=== PATIENT | male | born 1990 | race Caucasian/White ===

== ENCOUNTER 2016-06-07 22:59 | Emergency (ER) | payer OTHER ==
[~2016-06-07] VITALS: Ht 182.9 cm; Wt 122.5 kg
[~2016-06-07 22:59] MED LIST: ARISTOCORT OINT15 GM TOP; AUGMENTIN 875 M1 TAB PO; CIPRO 500MG TA500 MG PO; KEFLEX500 MG PO; MOTRIN 600 MG600 MG PO; MOTRIN600 MG PO; PERCOCET 325 MG1 TA2 PO
[2016-06-07 23:37] VITALS: BP 129/89
[2016-06-07 23:54] LABS: ABSOLUTE BASOPHIL COUNT 0 /CUMM (0.0-0.2); ABSOLUTE EOSINOPHIL COUNT 0.1 /CUMM (0.0-0.7); ABSOLUTE MONOCYTE COUNT 0.3 /CUMM (0.10-0.60); BASOPHIL % 0.3 % (0.0-2.0); HEMATOCRIT 46.6 % (42-52); MEAN CORPUSCULAR HGB 27.6 PG (27.0-31.0); MEAN CORPUSCULAR HGB CONC 33.8 G/DL (33.0-37.0); MEAN CORPUSCULAR VOLUME 81.8 FL (80.0-94.0); MEAN PLATELET VOLUME 7.6 FL (7.4-10.4); RBC DISTRIBUTION WIDTH 13.3 % (11.5-14.5); WHITE BLOOD CELL COUNT 12.5 /CUMM (4.8-10.8)
[2016-06-08 00:16] LABS: PLATELET COUNT 268 /CUMM (130-400)
--- NOTE | 2016-06-08 00:16 | ED GI/GU/ABDOMINAL COMPLAINT ---
History of Present Illness General Chief Complaint: Nausea, Vomiting, Diarrhea Stated Complaint: "KAVITA BEEN THROWING UP 2 DAYS" Source: patient Exam Limitations: no limitations Allergies Coded Allergies: Penicillins (UNKNOWN, WAS TOLD HE HAD A KID 06/07/16) Uncoded Allergies: PET HAIR/DANDER (TRIGGERS ASTHMA 03/04/15) Reconcile Medications Cephalexin (Keflex) 500 MG CAP 1 TAB PO TID INFECTION Ciprofloxacin (Cipro) 500 MG TAB 1 TAB PO BID HEMATOSPERMIA Ondansetron (Zofran Odt) 4 MG TAB.RAPDIS 1 TAB SL TID PRN nausea Triamcinolone Acetonide (Aristocort Oint. 0.5% 15GM) 15 GM ONT 1 TING TOP BID CRACKED SKIN TO HANDS apply to affected area(s) Triage Note: 26yo MALE TO TRIAGE W/CO VOMITING X 2 D. DENIES ANY DIARRHEA. Triage Nurses Notes Reviewed? yes HPI: This patient is a 26-year-old male who presented to the emergency department today for evaluation of vomiting. The patient reported that the vomiting began yesterday. He reported that he vomits every time he tries to eat or drink anything. He reported associated nausea and some intermittent, 4 out of 10 abdominal cramping which is nonradiating and associated with vomiting. The patient reported that he has not had a bowel movement in approximately 2 days. He reported that this is normal for him. The patient denied any fevers, chills, chest pain, difficulty breathing. He did report some back pain as well as urinary burning once with urination today he denied any urinary urgency, frequency, or blood in the urine. (VERONICA LEON PA-C) Vital Signs & Intake/Output Vital Signs & Intake/Output ED Intake and Output 06/09 0000 06/08 1200 Intake Total 1500 Output Total 300 Balance 1200 Intake, IV 1200 Intake, Oral 300 Output, Urine 300 Past History Travel History Traveled to [place] past 21 day No Medical History Any Pertinent Medical History? 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 No (VERONICA LEON PA-C) Review of Systems Review of Systems Constitutional: Reports: no symptoms. EENTM: Reports: no symptoms. Respiratory: Reports: no symptoms. Cardiovascular: Reports: no symptoms. GI: Reports: see HPI. Genitourinary: Reports: see HPI. Musculoskeletal: Reports: see HPI. Skin: Reports: no symptoms. Neurological/Psychological: Reports: no symptoms. All Other Systems: Reviewed and Negative (VERONICA LEON PA-C) Physical Exam Physical Exam Gastrointestinal: normal bowel sounds, soft, non-tender, no organomegaly, no rebound or guarding. No peritoneal signs. Nondistended. No masses appreciated Comments: Well-developed well-nourished person in no acute distress HEENT: Normal EENT exam, head normocephalic, moist mucous membranes Pupils equally round and reactive to light. Neck: Supple, no lymphadenopathy Back: Normal inspection. No CVA tenderness Cardiovascular: Regular rate and rhythm, with no murmurs Respiratory: No respiratory distress. Speaking in full sentences Extremity: Normal and equal pulses Neuro: Alert oriented x3, cranial nerves II through XII grossly intact. Skin: No appreciable rash on exposed skin, skin is warm and dry. Psych: Mood and affect is normal Core Measures ACS in differential dx? No Severe Sepsis Present: No Septic Shock Present: No (VERONICA LEON PA-C) Progress Differential Diagnosis: AAA, AMI, appendicitis, biliary colic, bowel obstruction , colon cancer, cholecystitis, diverticulitis, epididymitis, gastritis, hepatitis, ischemic bowel, inflamm bowel dis, Vicenta-Alexey tear, pancreatitis, PUD/GERD, perforated viscous, pyelonephritis, SBO, ureterolithiasis, urinary retention, UTI/pyelo Plan of Care: Orders Procedure Date/time Status CULTURE,URINE 06/08 0005 Active RAPID VIRAL INFLUENZA A 06/07 2355 Active LIPASE 06/07 2306 Complete HEPATIC FUNCTION PANEL 06/07 230 Complete CBC WITHOUT DIFFERENTIAL 06/07 230 Complete BASIC METABOLIC PANEL 06/07 230 Complete AMYLASE 06/07 230 Complete Laboratory Tests 06/08/16 0005: Urine Color Cancelled, Urine Clarity Cancelled, Urine pH Cancelled, Ur Specific Jefferson Cancelled, Urine Protein Cancelled, Urine Ketones Cancelled, Urine Nitrite Cancelled, Urine Bilirubin Cancelled, Urine Urobilinogen Cancelled, Ur Leukocyte Esterase Cancelled, Ur Microscopic Cancelled, Urine Hemoglobin Cancelled, Urine Glucose Cancelled 06/07/16 2345: Anion Gap 11, Estimated GFR > 60, BUN/Creatinine Ratio 15.6, Glucose 94, Calcium 8.9, Total Bilirubin 1.1, Direct Bilirubin 0.5 H, AST 46, ALT 68, Alkaline Phosphatase 64, Total Protein 7.6, Albumin 4.4, Amylase 69, Lipase 84, CBC w Diff NO MAN DIFF REQ, RBC 5.70, MCV 81.8, MCH 27.6, RDW 13.3, MPV 7.6, Gran % 88.0 H, Lymphocytes % 8.1 L, Monocytes % 2.6, Eosinophils % 1.0, Basophils % 0.3, Absolute Granulocytes 11.0 H, Absolute Lymphocytes 1.0 L, Absolute Monocytes 0.3, Absolute Eosinophils 0.1, Absolute Basophils 0, PUBS MCHC 33.8 Microbiology 06/08 0005 URINE ROUT: Urine Culture - ORD Initial ED EKG: none Hand-Off Endorsed To: MAGDA DEAL,ARLENE Parker Endorsed Time: 49 Pending: labs, other (PO TOLERATION) (EDWARD SALES,VERONICA) Departure Departure Disposition: HOME OR SELF CARE Condition: Stable Clinical Impression Primary Impression: Viral syndrome Referrals: PATIENT HAS NO PRIMARY CARE DR (PCP/Family) Additional Instructions: Take zofran as prescribed for nausea. Rest and stay hydrated. Return for any worsening symptoms or concerns. Departure Forms: Customer Survey General Discharge Information Prescriptions: Current Visit Scripts Ondansetron (Zofran Odt) 1 TAB SL TID PRN nausea #10 TAB (VERONICA LEON PA-C) PA/CHIMNEY MECHANIC Co-Sign Statement Statement: ED Attending supervision documentation- [x] I saw and evaluated the patient. I have also reviewed all the pertinent lab results and diagnostic results. I agree with the findings and the plan of care as documented in the PA's/CHIMNEY MECHANIC's documentation. [] I have reviewed the ED Record and agree with the PA's/CHIMNEY MECHANIC's documentation. [] Additions or exceptions (if any) to the PAs/CHIMNEY MECHANIC's note and plan are summarized below: [] (MAGDA DEAL,ARLENE Parker) [] I have reviewed the ED Record and agree with the PA's/CHIMNEY MECHANIC's documentation. [] Additions or exceptions (if any) to the PAs/CHIMNEY MECHANIC's note and plan are summarized below: [] (MAGDA DEAL,ARLENE Parker)
[2016-06-08] MEDS ORDERED: ZOFRAN ODT4 M1 SL (00:40)
== END 2016-06-08 01:52 ==
LOC: ERH 22:59
PROVIDERS: Pediatrics
DX: B34.9 Viral infection, unspecified (principal); R10.9 Unspecified abdominal pain
CPT/HCPCS: 87086; 87804; 87804-59; 96361; 96374; 96375; J2405

== ENCOUNTER 2016-06-13 05:44 | Emergency (ER) | payer OTHER ==
[~2016-06-13] VITALS: Ht 182.9 cm; Wt 122.5 kg
[~2016-06-13 05:44] MED LIST changes: +ZOFRAN ODT4 M1 SL
--- NOTE | 2016-06-13 06:08 | ED GENERAL ADULT ---
See Addendum History of Present Illness General Chief Complaint: General Adult Stated Complaint: " MY ANUS HURTS" Source: patient Exam Limitations: no limitations Vital Signs & Intake/Output Vital Signs & Intake/Output Vital Signs Date Time Temp Pulse Resp B/P Pulse O2 O2 Flow FiO2 Ox Delivery Rate 06/13 0603 100 Room Air 06/13 06 99.1 106 20 152/93 97 Room Air Allergies Coded Allergies: Penicillins (UNKNOWN, WAS TOLD HE HAD A KID 06/07/16) Uncoded Allergies: PET HAIR/DANDER (TRIGGERS ASTHMA 03/04/15) Reconcile Medications Cephalexin (Keflex) 500 MG CAP 1 TAB PO TID INFECTION Ciprofloxacin (Cipro) 500 MG TAB 1 TAB PO BID HEMATOSPERMIA Ondansetron (Zofran Odt) 4 MG TAB.RAPDIS 1 TAB SL TID PRN nausea Triamcinolone Acetonide (Aristocort Oint. 0.5% 15GM) 15 GM ONT 1 TING TOP BID CRACKED SKIN TO HANDS apply to affected area(s) Triage Note: PT TO TRIAGE COMPLAINING OF A "PAINFUL LUMP AROUND ANUS". PT STATES HE HAD A STOMACH VIRUS RECENTLY AND FOR THE PAST FEW DAYS HAS HAD V+D. PT STATES HE "CANT SIT DOWN" Triage Nurses Notes Reviewed? yes Onset: Gradual Duration: day(s):, getting worse Timing: recent history Injury Environment: home Severity: moderate Modifying Factors: Worsens With: movement, other ("I can't sit."). Associated Symptoms: diarrhea HPI: 26-year-old gentleman in prior good health presents with rectal pain. He states that he had 3 days of a diarrheal illness. The diarrhea has resolved. However, his anus hurts with increasing intensity over the past 24 hours. He states he is unable to sit down. He states he is quite uncomfortable. He has no fever chills nausea vomiting diarrhea or abdominal pain. Past History Travel History Traveled to [place] past 21 day No Medical History Any Pertinent Medical History? 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 No Review of Systems Review of Systems Constitutional: Reports: no symptoms. EENTM: Reports: no symptoms. Respiratory: Reports: no symptoms. Cardiovascular: Reports: no symptoms. GI: Reports: no symptoms. Genitourinary: Reports: no symptoms. Musculoskeletal: Reports: no symptoms. Skin: Reports: no symptoms. Neurological/Psychological: Reports: no symptoms. Hematologic/Endocrine: Reports: no symptoms. Immunologic/Allergic: Reports: no symptoms. All Other Systems: Reviewed and Negative Physical Exam Physical Exam General Appearance: well developed/nourished, mild distress, moderate distress Head: atraumatic Eyes: Bilateral: normal appearance. Ears, Nose, Throat: normal pharynx Neck: normal inspection, supple, full range of motion Respiratory: normal breath sounds, chest non-tender, no respiratory distress, quiet respiration, lungs clear Cardiovascular: regular rate/rhythm Gastrointestinal: normal bowel sounds, soft, non-tender Rectal: LEFT SIDED RECTAL TENDERNESS TO PALPATION, WARM/HOT TO PALPATION, SLIGHTLY SWOLLEN, WITHOUT OBVIOUS ABSCESS. NO OBVIOUS HEMORRHOIDS. Extremities: normal inspection Neurologic/Psych: no motor/sensory deficits, awake, alert, oriented x 3 Skin: intact, normal color, warm/dry Core Measures ACS in differential dx? No CVA/TIA Diagnosis: No Severe Sepsis Present: No Septic Shock Present: No Progress Differential Diagnoses I considered the following diagnoses in my evaluation of the patient: Anal fissure versus abscess versus other Plan of Care: Orders Procedure Date/time Status LACTIC ACID 06/13 923 Active LIPASE 06/13 623 Active LACTIC ACID 06/13 623 Active COMPREHENSIVE METABOLIC PANEL 06/13 623 Active CBC WITHOUT DIFFERENTIAL 06/13 623 Active AMYLASE 06/[address] ABD & PELVIS W ORAL & IV CO 06/13 623 Active Laboratory Tests 06/13/16 0640: Sodium Pending, Potassium Pending, Chloride Pending, Carbon Dioxide Pending, Anion Gap Pending, BUN Pending, Creatinine Pending, BUN/Creatinine Ratio Pending , Glucose Pending, Lactic Acid Pending, Calcium Pending, Total Bilirubin Pending , AST Pending, ALT Pending, Alkaline Phosphatase Pending, Total Protein Pending, Albumin Pending, Globulin Pending, Albumin/Globulin Ratio Pending, Amylase Pending, Lipase Pending, CBC w Diff Pending, WBC Pending, RBC Pending, Hgb Pending, Hct Pending, MCV Pending, MCH Pending, RDW Pending, Plt Count Pending, MPV Pending, PUBS MCHC Pending Initial ED EKG: none Hand-Off Endorsed To: CECIL DEAL,ROBIN Govea Endorsed Time: 0700 Pending: CT, labs Departure Departure Disposition: STILL A PATIENT Condition: Stable Clinical Impression Primary Impression: Rectalgia Referrals: PATIENT HAS NO PRIMARY CARE DR (PCP/Family) Departure Forms: Customer Survey General Discharge Information Critical Care Note Critical Care Note Critical Care Time: non-applicable
[2016-06-13 06:47] LABS: ABSOLUTE BASOPHIL COUNT 0.1 /CUMM (0.0-0.2); ABSOLUTE EOSINOPHIL COUNT 0.5 /CUMM (0.0-0.7); ABSOLUTE GRANULOCYTE CT 8.7 /CUMM (1.4-6.5); ABSOLUTE LYMPH COUNT 2.8 /CUMM (1.2-3.4); ABSOLUTE MONOCYTE COUNT 0.8 /CUMM (0.10-0.60); BASOPHIL % 0.4 % (0.0-2.0); GRANULOCYTE % 67.5 % (42.2-75.2); HEMATOCRIT 43.6 % (42-52); MEAN CORPUSCULAR HGB 27.6 PG (27.0-31.0); MEAN CORPUSCULAR HGB CONC 33.6 G/DL (33.0-37.0); MEAN PLATELET VOLUME 7.8 FL (7.4-10.4); PLATELET COUNT 278 /CUMM (130-400); RBC DISTRIBUTION WIDTH 13.5 % (11.5-14.5); RED BLOOD CELL CT 5.32 /CUMM (4.70-6.10); WHITE BLOOD CELL COUNT 12.9 /CUMM (4.8-10.8)
--- NOTE | 2016-06-13 09:35 | CT SCAN REPORT ---
EXAMINATION: CT ABDOMEN AND PELVIS WITH CONTRAST CLINICAL INFORMATION: Left-sided perirectal pain. COMPARISON: None. TECHNIQUE: Multidetector volumetric imaging was performed of the abdomen and pelvis before and after the IV administration of 94 mL of Optiray 320 intravenous contrast. Sagittal and coronal reformatted images were obtained on the technologist's workstation. DLP: 907 mGy-cm. FINDINGS: LUNG BASES: The visualized lung bases are unremarkable. LIVER, GALLBLADDER, AND BILIARY TREE: The liver is mildly enlarged and shows diffuse low-attenuation consistent with hepatic steatosis. No focal lesion is demonstrated. There is no intrahepatic ductal dilatation. The gallbladder is unremarkable with no evidence of radiopaque gallstones, gallbladder wall thickening, or obvious pericholecystic inflammatory changes. PANCREAS: Unremarkable. SPLEEN: The spleen is mildly enlarged measuring 15.2 cm in maximal dimension. There is normal enhancement. No focal lesion is demonstrated. The splenic vein enhances normally. ADRENAL GLANDS: Unremarkable. KIDNEYS AND URETERS: The kidneys are normal in size, shape, and attenuation. No hydronephrosis, hydroureter, or calculi seen. No perinephric stranding. BLADDER: Unremarkable. GASTROINTESTINAL TRACT: The stomach and duodenum are normal. No abnormality of the small bowel or mesentery is demonstrated. The terminal ileum is normal. There is a small area of soft tissue thickening in the left perianal region consistent with sinus tract. There is no contained fluid. The remainder the colon is unremarkable. The appendix is normal. ABDOMINAL WALL: No significant hernia is appreciated. LYMPH NODES: Normal. VASCULAR: Unremarkable. PELVIC VISCERA: Unremarkable. No abnormality of the prostate gland or seminal vesicles is seen. There is no free fluid. OSSEOUS STRUCTURES: Unremarkable. IMPRESSION: 1. Small linear soft tissue attenuation tract in the left perianal region consistent with perianal sinus tract. No contained fluid. No other abnormality of the GI tract demonstrated. The terminal ileum is normal in appearance. 2. Hepatic steatosis with hepatomegaly. 3. Nonspecific splenomegaly.
[2016-06-13 14:51] VITALS: BP 138/70
[2016-06-13] MEDS ORDERED: FLAGYL500 MG PO (14:57)
[2016-06-13] MEDS ORDERED: CIPRO500 M1 PO (14:57)
[2016-06-13] MEDS ORDERED: PERCOCET 5-3251 EACH PO (14:57)
[2016-06-14] MEDS ORDERED: CIPRO500 M1 PO (10:58)
[2016-06-14] MEDS ORDERED: FLAGYL500 MG PO (10:59)
[2016-06-14] MEDS ORDERED: PERCOCET 5-3251 EACH PO (11:01)
[2016-06-14] MEDS ORDERED: COLACE100 M1 PO (11:02)
== END 2016-06-13 15:11 ==
LOC: ERH 05:44
PROVIDERS: Pediatrics
DX: K62.89 Other specified diseases of anus and rectum (principal)
CPT/HCPCS: 74177; 81003; 96374; 96375; 96376; J0131; J1885

== ENCOUNTER 2016-06-14 00:48 | Observation (INO) | payer OTHER ==
[~2016-06-14] VITALS: Ht 182.9 cm; Wt 122.5 kg
[~2016-06-14 00:48] MED LIST changes: +CIPRO500 M1 PO; +FLAGYL500 MG PO; +PERCOCET 5-3251 EACH PO
--- NOTE | 2016-06-14 00:59 | NUR ---
PT TO TRIAGE C/O ANUS PAIN. PT WAS HERE YESTERDAY MORNING FOR PAINFUL LUMP AROUND ANUS. PT WAS GIVEN RX FOR OXYCODONE, PER PT "THE PAIN MEDS ARENT WORKING"
--- NOTE | 2016-06-14 01:09 | NUR ---
AT BEDSIDE FOR EVAL
--- NOTE | 2016-06-14 01:18 | NUR ---
IV EST #20 IN [facility]
--- NOTE | 2016-06-14 01:32 | NUR ---
PT MEDICATED WITH 1MG DILAUDID AND 30MG TORADOL PER EMAR
--- NOTE | 2016-06-14 01:47 | NUR ---
SURGICAL PA AT BEDSIDE
--- NOTE | 2016-06-14 02:09 | ED GI/GU/ABDOMINAL COMPLAINT ---
History of Present Illness General Chief Complaint: General Adult Stated Complaint: ANAL PAIN,OXYCODONE NOT WORKING PER PT Source: patient, family, old records Exam Limitations: no limitations Vital Signs & Intake/Output Vital Signs & Intake/Output Vital Signs Date Time Temp Pulse Resp B/P Pulse O2 O2 Flow FiO2 Ox Delivery Rate 06/14 0102 Room Air 06/14 0102 97.2 96 20 134/58 97 Room Air Allergies Coded Allergies: Penicillins (UNKNOWN, WAS TOLD HE HAD A KID 06/07/16) Uncoded Allergies: PET HAIR/DANDER (TRIGGERS ASTHMA 03/04/15) Reconcile Medications Ciprofloxacin HCl (Cipro) 500 MG TABLET 1 TAB PO BID INFECTION Metronidazole (Flagyl) 500 MG TABLET 1 TAB PO Q6 DIVERTICULITIS Oxycodone HCl/Acetaminophen (Percocet 5-325 MG Tablet) 5 MG-325 MG TABLET 1 TAB PO Q6P PRN PAIN Triage Note: PT TO TRIAGE C/O ANUS PAIN. PT WAS HERE YESTERDAY MORNING FOR PAINFUL LUMP AROUND ANUS. PT WAS GIVEN RX FOR OXYCODONE, PER PT "THE PAIN MEDS ARENT WORKING" Triage Nurses Notes Reviewed? yes Onset: yesterday Duration: day(s):, constant, continues in ED, getting worse Timing: recent history Quality/Severity: sharpness, severe Location: perianal Radiation: no radiation Activities at Onset: none Prior Abdominal Problems: similar symptoms Past Sexual History: Unobtainable at this time Modifying Factors: Worsens With: palpation, other (sitting). Associated Symptoms: loss of appetite HPI: 9 days prior to admission patient complains of nausea vomiting frequent loose watery stools. 2 days prior to admission he complains of increasing perianal pain. 1 day prior to admission he was seen in the emergency department diagnosed with perianal sinus tract and referred to colorectal surgery. He returns with pain not controlled by antibiotics and Percocet. He denies fever chills chest pain cough shortness of breath headache dysuria rash bleeding Past History Travel History Traveled to [place] past 21 day No Medical History Any Pertinent Medical History? 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 No Review of Systems Review of Systems Constitutional: Reports: no symptoms. EENTM: Reports: no symptoms. Respiratory: Reports: no symptoms. Cardiovascular: Reports: no symptoms. GI: Reports: see HPI. Genitourinary: Reports: no symptoms. Musculoskeletal: Reports: no symptoms. Skin: Reports: no symptoms. Neurological/Psychological: Reports: no symptoms. Hematologic/Endocrine: Reports: no symptoms. Immunologic/Allergic: Reports: no symptoms. All Other Systems: Reviewed and Negative Physical Exam Physical Exam General Appearance: well developed/nourished, alert, awake, anxious, severe distress Head: atraumatic, normal appearance Eyes: Bilateral: normal appearance, PERRL, EOMI, normal inspection. Ears, Nose, Throat, Mouth: hearing grossly normal, moist mucous membrane Neck: normal inspection, supple, full range of motion, normal alignment Respiratory: normal breath sounds, chest non-tender, no respiratory distress, quiet respiration, lungs clear Cardiovascular: regular rate/rhythm, normal peripheral pulses, norml femoral pulses equa Peripheral Pulses: 4+ carotid (R), 4+ carotid (L) Gastrointestinal: normal bowel sounds, soft, non-tender, no organomegaly Rectal: deferred Male Genitals: normal genitalia Back: normal inspection, normal range of motion Extremities: normal range of motion, no ligament instability Neurologic/Psych: no motor/sensory deficits, awake, alert, oriented x 3, normal gait, normal mood/affect Skin: intact, normal color, warm/dry Core Measures ACS in differential dx? No Severe Sepsis Present: No Septic Shock Present: No Progress Differential Diagnosis: hemorrhoids, perianal lesion Plan of Care: Orders Procedure Date/time Status Nothing by Mouth 06/14 B Active Pathway - chart 06/14 223 Active Patient Data 06/14 223 Active Code Status 06/[address] in observation 06/[address] in observation 06/14 UNK Active VTE Mechanical Prophylaxis 06/14 UNK Active Vital Signs 06/14 UNK Active Intake & Output 06/14 UNK Active Activity/Ambulation 06/14 UNK Active Current Medications Sig/Ed Start time Last Medication Dose Stop Time Status Admin Acetaminophen 650 MG Q6PRN PRN 06/14 0230 AC (Tylenol) Hydromorphone HCl 1 MG Q2-3 HRS NEEDED.. 02/03 0230 AC (Dilaudid) Ketorolac 30 MG Q8P PRN 06/14 0230 AC Tromethamine 06/18 023 (Toradol) Ondansetron HCl 4 MG Q6P PRN 06/14 0230 AC (Zofran) Potassium Chloride 20 MEQ .Q8H 06/14 0230 AC (KCl 20MEQ in D5/ N.S. 1000 ML bag) Dextrose/Sodium 1,000 ML Chloride (D5-Normal Saline) Initial ED EKG: none Departure Departure Time of Disposition: 207 Disposition: STILL A PATIENT Condition: Stable Clinical Impression Primary Impression: Perianal lesion Referrals: PATIENT HAS NO PRIMARY CARE DR (PCP/Family) Departure Forms: Customer Survey General Discharge Information Observation Note Spoke With: CARLI SANTO JR, DO Physician Advisor Notified: AURY DEAL,FARZANA Lam Place Patient In: Non-ED OBS Care Area Rationale for Observation: My rational for observation is as follows colorectal surgery evaluation evaluation under anesthesia NPO IV analgesia.
--- NOTE | 2016-06-14 02:09 | Admission Core Measures ---
Acute Coronary Syndrome Inclusion Criteria ACS Diagnosis No Inpatient Core Measures LDL Reminder: If No, please order W/I first 24hr of stay Congestive Heart Failure Inclusion Criteria CHF Diagnosis No Cerebrovascular accident Inclusion Criteria CVA/TIA Diagnosis No Inpatient Core Measures Bedside Swallow Eval Reminder: If BSE failed, place ST order Antithrombotic Reminder: Order Antithrombotic Medication by end of day 2 Antithrombotic Reminder: Document Reason Antithrombotic Not ordered by end of day 2 AFIB/Flutter Reminder: If Present, add to problem list AFIB/Flutter Reminder: Order Anticoag Medication for pts with AFIB/Flutter Atherosclerosis Reminder: If Present, add to problem list LDL Reminder: If No, please order W/I first 24hr of stay PT Order Reminder: If No, please order Venous thromboembolism Inpatient Core Measures VTE Risk Factors: No Risk Factors VTE Prophylaxis Ordered Inpt Mechanical (ALPS[facility]ED[facility]) [facility] d/t No contraindications No VTE Pharm Prophylaxis d/t No contraindications Inclusion Criteria - Per Current guidelines, there needs to be overlap - treatment for the first 5 days of Warfarin therapy. - Parenteral Anticoagulation (IV or SC) needs to be - given along with Warfarin therapy. 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
--- NOTE | 2016-06-14 02:19 | History & Physical Pre-Op ---
EDDI LINARES 06/14/16 0208: General Information and HPI MD Statement: I have seen and personally examined NATHALIA THACKER and documented this H&P. The patient is a 26 year old M who presented with a patient stated chief complaint of perirectal pain 3 days. Source of Information: patient Exam Limitations: no limitations History of Present Illness: This is a 26-year-old male with a three-day history of perirectal pain. The patient was seen he reports having a GI bug earlier in the week with associated nausea vomiting and diarrhea. That has since self resolved but since Friday he has had increased perirectal pain which is Significant Is Hard for Him to Sit. The Patient Was Seen in the Emergency Department Earlier Today and There Is No Attempts to Treat Him Conservatively and Follow up in the Office with the Pain Became so Severe He Returned. He has other complaints at the current time and has never experienced any perirectal issues in the past. He denies any recent fevers, chills, or dysuria. Allergies/Medications Allergies: Coded Allergies: Penicillins (UNKNOWN, WAS TOLD HE HAD A KID 06/07/16) Uncoded Allergies: PET HAIR/DANDER (TRIGGERS ASTHMA 03/04/15) Home Med list Ciprofloxacin HCl (Cipro) 500 MG TABLET 1 TAB PO BID INFECTION Metronidazole (Flagyl) 500 MG TABLET 1 TAB PO Q6 DIVERTICULITIS Oxycodone HCl/Acetaminophen (Percocet 5-325 MG Tablet) 5 MG-325 MG TABLET 1 TAB PO Q6P PRN PAIN Past History Medical History Neurological: NONE EENT: NONE Cardiovascular: PRE-HYPERTENSION Respiratory: asthma Gastrointestinal: NONE Hepatic: NONE Renal: NONE Musculoskeletal: NONE Psychiatric: NONE Endocrine: NONE Blood Disorders: NONE Cancer(s): NONE 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 Home Who Do You Live With? self Primary Language: Uzbek Smoking Status: Never Smoked ETOH Use: denies use Illicit Drug Use: denies illicit drug use Functional Ability ADLs Independent: dressing, eating, toileting, bathing. Ambulation: independent IADLs Independent: shopping, housework, finances, food prep, telephone, transportation , medication admin. 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 GI: Denies: bloating, distention, bowel incontinence, changes in stool. Genitourinary: Denies: dysuria, pain. Exam & Diagnostic Data Last 24 Hrs of Vital Signs/I&O Vital Signs Date Time Temp Pulse Resp B/P Pulse O2 O2 Flow FiO2 Ox Delivery Rate 06/14 0102 Room Air 06/14 0102 97.2 96 20 134/58 97 Room Air Intake & Output 06/14 0800 06/14 0000 06/13 1600 Intake Total Output Total Balance Patient 240 lb Weight CAT scan of the abdomen and pelvis: Suggestive of a perianal fistula Physical Exam: Gen.: Alert and obvious distress Skin: Warm and dry without jaundice HEENT: Normocephalic and atraumatic. Pupils are equal round reactive to light and accommodation Cardiac: S1-S2 regular Pulmonary: Bilateral breath sounds are equal good exchange Abdomen: Soft, nontender, nondistended, bowel sounds positive. No masses or hernias were palpated. Perianal region: On the left side there is significant erythema, edema and tenderness to palpation there is no definitive fluctuance or anything expressible. Rectal exam unable to be performed due to significant pain. Extremities: Bilateral lower extremities are warm without calf tenderness or significant edema. Assessment/Plan Assessment/Plan: Assessment: 26-year-old male with a 3 day history of increasing perirectal pain. Workup is positive for a probable perirectal fistula. The case was discussed with Carli Marte DO. Plan: The patient was placed in observation in an attempt to better manage his pain The patient was kept nothing by mouth with IV hydration and will probably be brought to the operating theater later today for an exam under anesthesia plus or minus additional intervention. The plan was discussed with the patient's recent agreement. As Ranked By This Provider Problem List: 1. Perianal fistula CARLI MARTE DO 06/14/16 0935: Attending MD Review Statement Attending Statement Attending Assessment/Plan: Patient examined and clinical data reviewed Patient discussed with PA staff And agree with PA assessment and plan Patient with severe worsening perirectal pain and limited exam due to pain Proceed with exam under anesthesia today
--- NOTE | 2016-06-14 02:49 | NUR ---
PT MEDICATED WITH 20MEQ KCL D5 @125MLS/HR PER EMAR
--- NOTE | 2016-06-14 02:59 | NUR ---
PT'S RM ASSIGNMENT 224 BED 2
--- NOTE | 2016-06-14 03:15 | NUR ---
REPORT GIVEN TO EUGENE ATKINS
[2016-06-14 03:38] VITALS: BP 134/76
--- NOTE | 2016-06-14 04:08 | NUR ---
PT ARRIVED TO FLOOR AT 0333 VIA WHEELCHAIR. A&OX3 ON RA, LUNGS CLEAR NO DISTRESS. VITALS STABLE. C/O PAIN 10/19, DILAUDID GIVEN FOR PAIN. NPO FOR OR IN AM, NPO EXPLAINED TO PT, IV TO LAC #20 FROM 06/14/16. PT ORIENTED TO ROOM, CALL JACOB AND STAFF. WILL CONTINUE TO MONITOR.
--- NOTE | 2016-06-14 09:44 | Operative Report ---
Operative/Inv Procedure Report Surgery Date: 06/14/16 Name of Procedure: Exam under anesthesia Incision and drainage of perianal abscess Pre-Operative Diagnosis: Severe perianal pain with limited physical exam Post-Operative Diagnosis: Perianal abscess Estimated Blood Loss: scant Surgeon/Laserist: CARLI SANTO JR, DO MS-IV Anesthesia: laryngeal mask airway, local monitored anesthesi Monitors: Per routine Implants: None Drains: Iodoform packing placed in wound cavity Specimens: 1. Cultures from abscess cavity 2. Perianal skin overlying the abscess cavity Microbiology: Abscess cavity cultures Complications: None Condition: Good Operative Indication: This is a 26-year-old gentleman with several day history of progressively worsening perianal pain. Presented to [facility] last night. Exam very limited secondary to patient discomfort. Admitted for observation with plans for exam under anesthesia Operative/Procedure Note Note: Patient was taken into the operating room and placed in the supine position on the operating room table. He received IV antibiotics. Induction of general anesthesia and placement of laryngeal mask airway was then performed. The patient was converted to lithotomy position [facility]. The perineum was prepped and draped in usual fashion. An anal block was performed using quarter percent Marcaine. 30 mL in total were injected. Patient had a fluctuant area in the left lateral anal margin. After the block was completed a large-bore needle was inserted into the point of maximal fluctuance. I was able to easily aspirate 3 mL of purulent fluid. Next a radial incision was made at the level of the needle insertion. We easily entered the abscess cavity. Several more cc of purulent material were expressed. The abscess cavity was copiously irrigated with sterile saline. Our incision was converted to a ellipse with some skin excised to assure drainage. Quarter inch iodoform packing was placed into the wound. A bulky sterile wound dressing was then applied. The procedure was concluded. The patient was converted back to supine position extubated in the operating room and taken to recovery area in good condition. The patient tolerated the procedure well. At the end of the operational needle sponges and instruments were accounted for Findings: Perianal abscess Discharge Disposition: PACU Additional Comments: Patient will be discharged from the hospital today with oral antibiotics pain medicine and stool softeners. He should follow up in my office in 2 weeks
[2016-06-14 10:57] VITALS: BP 138/90
[2016-06-14] MEDS ORDERED: CIPRO500 M1 PO (10:58)
[2016-06-14] MEDS ORDERED: FLAGYL500 MG PO (10:59)
[2016-06-14] MEDS ORDERED: PERCOCET 5-3251 EACH PO (11:01)
[2016-06-14] MEDS ORDERED: COLACE100 M1 PO (11:02)
--- NOTE | 2016-06-14 11:03 | NUR ---
PATIENT RETURN TO FLOOR FROM PACU. S/P I&D OF RECTAL ABSCESS. PATIENT IS ALERT AND ORIENTATED X3. VSS AND DOCUMENTED. RECTUM DSG CDI. DENIES PAIN AT THIS TIME. IV FLUIDS CONTINUES. WILL FOLLOW.
--- NOTE | 2016-06-14 11:05 | Patient Discharge Instructions ---
Discharge Instructions General Discharge Information You were seen/treated for: JORGITO-RECTAL ABSCESS You had these procedures: INCISION AND DRAINAGE OF JORGITO-RECTAL ABSCESS Watch for these problems: INCREASING PAIN, REDNESS, DRAINAGE. INABILITY TO MOVE BOWELS. FEVER >101.5 Special Instructions: REMOVE PACKING ON 06/15/2015. DO WARM SITZ BATHS TWICE DAILY, APPLY BACITRACIN OINTMENT AND GAUZE TO WOUND AFTER BATH. Diet Continue normal diet: Yes Recommended Diet: Regular Activity Full Activity/No Limits: No Activity Self Limited: Yes Acute Coronary Syndrome Inclusion Criteria At DC or during hospital stay patient has or had the following: ACS DIAGNOSIS No Discharge Core Measures Meds if any: Prescribed or Continued at Discharge Meds if any: NOT Prescribed or Continued at Discharge Congestive Heart Failure Inclusion Criteria At DC or during hospital stay patient has or had the following: CHF DIAGNOSIS No Discharge Core Measures Meds if any: Prescribed or Continued at Discharge Meds if any: NOT Prescribed or Continued at Discharge Cerebrovascular accident Inclusion Criteria At DC or during hospital stay patient has or had the following: CVA/TIA Diagnosis No Discharge Core Measures Meds if any: Prescribed or Continued at Discharge Meds if any: NOT Prescribed or Continued at Discharge Venous thromboembolism Inclusion Criteria VTE Diagnosis No VTE Type NONE VTE Confirmed by (Test) NONE Discharge Core Measures - Per Current guidelines, there needs to be overlap - treatment for the first 5 days of Warfarin therapy. - If discharged on Warfarin prior to 5 days of - overlap therapy, the patient will need to be - assessed for post discharge needs including - *Post discharge parental anticoagulation - *Warfarin and/or parental anticoagulation education - *Follow up date to check INR post discharge At least 5 days overlap therapy as Inpatient No Meds if any: Prescribed or Continued at Discharge Note: Overlap Therapy is Warfarin and Anticoagulant Meds if any: NOT Prescribed or Continued at Discharge
--- NOTE | 2016-06-14 11:12 | Surg Short-stay <48hrs Dis Sum ---
See Addendum Visit Information Visit Dates Admission Date: 06/14/16 Discharge Date: 06-14-2016 Surgical Short Stay DC Summary Admission Diagnosis: JORGITO-RECTAL ABSCESS Final Diagnosis: SAME Procedure(s): I&D JORGITO-RECTAL ABSCESS Summary/Significant Findings: PATIENT WAS ADMITTED TO HOSPITAL THROUGH EMERGENCY DEPARTMENT WITH COMPLAINTS OF RECTAL PAIN. HE WAS BROUGHT TO THE OR AND EVALUATED UNDER ANESTHESIA. UPON EVALUATION, A JORGITO-RECTAL ABSCESS WAS NOTED, IT WAS ASPIRATED AND INCISED, IRRIGATED, AND PACKED WITH IODOFORM. THE PATIENT TOLERATED THE PROCEDURE WELL. HE WAS TRANSFERRED TO A GENERAL SURGICAL FLOOR POST OP. HIS DIET WAS ADVANCED AND TOLERATED. HIS PAIN WAS WELL CONTROLLED. HIS VITAL SIGNS WERE STABLE AND WITHIN NORMAL LIMITS. HE VOIDED SPONTANEOUSLY. HE WAS DEEMED APPROPRIATE FOR DISCHARGE. Condition at Discharge: STABLE Discharge Disposition: home or self care Discharge instructions provided to patient/family: Yes Post discharge follow-up plan: FOLLOW UP WITH DR. SANTO IN TWO WEEKS
--- NOTE | 2016-06-14 12:53 | NUR ---
PATIENT'S BROUGHT IN HAMBURGER AND APPLE JUICE. PATIENT ATE AND TOLORATED WITHOUT ISSUES. PA AWARE. PLAN D/C HOME THIS AFTERNOON.
--- NOTE | 2016-06-14 13:11 | PN- General Surgery ---
Subjective Subjective: Post op check: S/P I&D sheridan-rectal abscess. Patient tolerated the procedure well. Pain has been well controlled. Denies chest pain, shortness of breath and difficulty breathing. Denies nausea and vomitting. Objective Vital Signs and I&Os Vital Signs Date Time Temp Pulse Resp B/P Pulse O2 O2 Flow FiO2 Ox Delivery Rate 06/14 1057 99.1 88 20 138/90 94 Room Air Room Air 06/14 0338 98.4 80 20 134/76 95 Room Air 06/14 0102 Room Air 06/14 0102 97.2 96 20 134/58 97 Room Air Intake & Output 06/14 1600 06/14 0800 06/14 0000 06/13 1600 06/13 0800 06/13 0000 Intake Total 1425 Output Total Balance 1425 Intake, IV 1375 Intake, Oral 50 Number 0 Bowel Movements Patient 270 lb Weight Physical Exam: General: Alert and oriented x3, no acute distress Cardiac: RRR, s1s2 Pulmonary: CTA bilaterally Abdomen: Non-tender non-distended Extremities: Moves all extremities, distal sensation intact, bilateral calves soft and non-tender Surgical site: Dressing dry and intact Assessment/Plan Assessment/Plan This is a 26 year old male, POD 0, s/p I&D sheridan-rectal abscess, doing well -Cipro/flagyll x10 days -Percocet for pain -Colace for stool softening -Regular diet as tolerated -Remove packing tomorrow -Sitz baths twice daily -Bacitracin and gauze after baths -Follow up with Dr. Marte in 2 weeks -Okay to discharge to home Core Measures/Miscellaneous Venous Thromboembolism VTE Risk Factors: Surgery VTE Contraindications: No Contraindications VTE Prophylaxis Ordered Inpt Mechanical (ALPS/TEDS) VTE Diagnosis: No VTE Type: NONE VTE Confirmed by (Test): NONE Beta Nuris Is Beta Nuris a Home Med? No Antibiotics Is Patient on Antibiotics? Yes If Yes: infection
[2016-06-14 15:20] VITALS: BP 136/80
[2016-06-15] MEDS ORDERED: BACTRIM DS TAB1 EACH PO (05:51)
[2016-06-15] MEDS ORDERED: PERCOCET 10-321 EACH PO (05:51)
[2016-06-15] MEDS ORDERED: IBUPROFEN800 M1 PO (05:51)
== END 2016-06-14 19:00 ==
LOC: ENRESERVDT → ENRESERVTM → ERH 00:48 → ERHI 02:07 → 2NA 03:27
PROVIDERS: ADMIT Colon & Rectal Surgery
DX: K61.0 Anal abscess (principal); J45.909 Unspecified asthma, uncomplicated
CPT/HCPCS: 88305; 96374; 96375; G0378; J1580; J1885; J7042; S5012

== ENCOUNTER 2016-06-15 04:15 | Emergency (ER) | payer OTHER ==
[~2016-06-15] VITALS: Ht 182.9 cm; Wt 122.5 kg
[~2016-06-15 04:15] MED LIST changes: +COLACE100 M1 PO
--- NOTE | 2016-06-15 04:39 | ED GI/GU/ABDOMINAL COMPLAINT ---
History of Present Illness General Chief Complaint: General Adult Stated Complaint: PAIN S/P SURGERY Source: patient Exam Limitations: no limitations Vital Signs & Intake/Output Vital Signs & Intake/Output Vital Signs Date Time Temp Pulse Resp B/P Pulse O2 O2 Flow FiO2 Ox Delivery Rate 06/15 0447 97.9 94 18 157/72 96 Room Air Allergies Coded Allergies: Penicillins (UNKNOWN, WAS TOLD HE HAD A KID 06/07/16) Uncoded Allergies: PET HAIR/DANDER (TRIGGERS ASTHMA 03/04/15) Reconcile Medications Ciprofloxacin HCl (Cipro) 500 MG TABLET 1 TAB PO BID INFECTION Ciprofloxacin HCl (Cipro) 500 MG TABLET 1 TAB PO BID INFECTION Docusate Sodium (Colace) 100 MG CAPSULE 1 CAP PO BID STOOL SOFTENER Ibuprofen 800 MG TABLET 1 TAB PO TID PRN pain Metronidazole (Flagyl) 500 MG TABLET 1 TAB PO Q6 DIVERTICULITIS Metronidazole (Flagyl) 500 MG TABLET 1 TAB PO Q6 DIVERTICULITIS Oxycodone HCl/Acetaminophen (Percocet 5-325 MG Tablet) 5 MG-325 MG TABLET 1 TAB PO Q6H PRN PAIN Oxycodone HCl/Acetaminophen (Percocet 5-325 MG Tablet) 5 MG-325 MG TABLET 1 TAB PO Q6P PRN PAIN Oxycodone HCl/Acetaminophen (Percocet 10-325 MG Tablet) 10 MG-325 MG TABLET 1 TAB PO 4 TIMES/DAY PRN pain ten... [id number] Sulfamethoxazole/Trimethoprim (Bactrim Ds Tablet) 800 MG-160 MG TABLET 1 TAB PO BID abscess Triage Nurses Notes Reviewed? yes Onset: Gradual Duration: hour(s): Timing: recent history Quality/Severity: sharpness, stabbing Location: RIGHT PERIRECTAL REGION Radiation: no radiation Activities at Onset: none Prior Abdominal Problems: STATUS POST INCISION AND DRAINAGE OF RIGHT PERIRECTAL ABSCESS Modifying Factors: Worsens With: palpation. Associated Symptoms: RECTALGIA HPI: 26-year-old gentleman postop day #2 for a right perirectal abscess. He states that he did well postop, was taking Percocet for pain, but then over the night developed worsening pain that was not relieved by Percocet. He states that he tried to remove the packing but the packing was too painful. He notes that there is been no drainage fever chills nausea vomiting or diarrhea. He notes there is local pain near the incision. He is otherwise well. Past History Travel History Traveled to [place] past 21 day No Medical History Any Pertinent Medical History? see below for history Neurological: NONE EENT: NONE Cardiovascular: PRE-HYPERTENSION Respiratory: asthma Gastrointestinal: NONE Hepatic: NONE Renal: NONE Musculoskeletal: NONE Psychiatric: NONE Endocrine: NONE Blood Disorders: NONE Cancer(s): NONE PSYCHOLOGY TECH/Reproductive: NONE History of MRSA: No History of VRE: No History of CDIFF: No Surgical History Surgical History: non-contributory Psychosocial History What is your primary language Vietnamese Family History Hx Contributory? No Review of Systems Review of Systems Constitutional: Reports: no symptoms. EENTM: Reports: no symptoms. Respiratory: Reports: no symptoms. Cardiovascular: Reports: no symptoms. GI: Reports: no symptoms. Genitourinary: Reports: no symptoms. Musculoskeletal: Reports: no symptoms. Skin: Reports: no symptoms. Neurological/Psychological: Reports: no symptoms. Hematologic/Endocrine: Reports: no symptoms. Immunologic/Allergic: Reports: no symptoms. All Other Systems: Reviewed and Negative Physical Exam Physical Exam General Appearance: well developed/nourished, mild distress Head: atraumatic, normal appearance Eyes: Bilateral: normal appearance. Ears, Nose, Throat, Mouth: hearing grossly normal Neck: normal inspection, supple, full range of motion, normal alignment Respiratory: normal breath sounds, chest non-tender, no respiratory distress, quiet respiration, lungs clear Cardiovascular: regular rate/rhythm Gastrointestinal: normal bowel sounds, soft, non-tender, no organomegaly Rectal: IN THE LEFT PERIRECTAL REGION THERE IS AN INCISION OF 1 CM FROM WHICH CALMS SURGICAL PACKING. tHERE IS MODERATE TENDERNESS AROUND THIS AREA WITH MILD INDURATION. tHERE IS NO DRAINAGE. Back: normal inspection Extremities: normal range of motion, evidence of injury, pelvis stable Neurologic/Psych: awake, alert, oriented x 3 Skin: ABOVE Core Measures ACS in differential dx? No Severe Sepsis Present: No Septic Shock Present: No Progress Differential Diagnosis: POSTOP PAIN VERSUS INFECTION VERSUS OTHER Plan of Care: Orders Procedure Date/time Status LIPASE 06/15 446 Complete HEPATIC FUNCTION PANEL 06/15 446 Complete CBC WITHOUT DIFFERENTIAL 06/15 446 Complete BASIC METABOLIC PANEL 06/15 446 Complete AMYLASE 06/15 446 Complete Laboratory Tests 06/15/16 0457: Anion Gap 10, Estimated GFR > 60, BUN/Creatinine Ratio 11.1, Glucose 105 H, Calcium 9.2, Total Bilirubin 0.6, Direct Bilirubin 0.4, AST 51, ALT 107 H, Alkaline Phosphatase 76, Total Protein 7.2, Albumin 4.0, Amylase 65, Lipase 92, CBC w Diff NO MAN DIFF REQ, RBC 4.64 L, MCV 82.7, MCH 27.8, RDW 13.2, MPV 7.4, Gran % 69.9, Lymphocytes % 17.3 L, Monocytes % 5.5, Eosinophils % 7.0 H, Basophils % 0.3, Absolute Granulocytes 6.6 H, Absolute Lymphocytes 1.6, Absolute Monocytes 0.5, Absolute Eosinophils 0.7, Absolute Basophils 0, PUBS MCHC 33.6 Initial ED EKG: none Departure Departure Disposition: HOME OR SELF CARE Condition: Stable Clinical Impression Primary Impression: Postoperative pain Secondary Impressions: Perirectal abscess Referrals: PATIENT HAS NO PRIMARY CARE DR (PCP/Family) Departure Forms: Customer Survey General Discharge Information Prescriptions: Current Visit Scripts Sulfamethoxazole/Trimethoprim (Bactrim Ds Tablet) 1 TAB PO BID #20 TAB Oxycodone HCl/Acetaminophen (Percocet 10-325 MG Tablet) 1 TAB PO 4 TIMES/DAY PRN pain #10 TAB ten... [id number] Ibuprofen 1 TAB PO TID PRN pain #90 TAB Comments 06/15/16, 5:53am... Patient feeling more comfortable. White blood cell count was normal. Given that he still feels discomfort, I will add Bactrim to cover for MRSA. I also wrote a prescription for Percocet 10 mg. I advocated close follow -up and instructed him to see me tomorrow at 8 PM. I also encouraged him to follow up with Dr. Wheeler and return sooner if he develops fever or increasing pain or discharge. He expressed understanding at this plan. I gave him a note to excuse him from work for yesterday this and Friday. He is safe and stable for discharge.
[2016-06-15 05:23] LABS: ABSOLUTE BASOPHIL COUNT 0 /CUMM (0.0-0.2); ABSOLUTE EOSINOPHIL COUNT 0.7 /CUMM (0.0-0.7); ABSOLUTE GRANULOCYTE CT 6.6 /CUMM (1.4-6.5); ABSOLUTE LYMPH COUNT 1.6 /CUMM (1.2-3.4); ABSOLUTE MONOCYTE COUNT 0.5 /CUMM (0.10-0.60); BASOPHIL % 0.3 % (0.0-2.0); GRANULOCYTE % 69.9 % (42.2-75.2); MEAN CORPUSCULAR HGB 27.8 PG (27.0-31.0); MEAN CORPUSCULAR HGB CONC 33.6 G/DL (33.0-37.0); MEAN CORPUSCULAR VOLUME 82.7 FL (80.0-94.0); MEAN PLATELET VOLUME 7.4 FL (7.4-10.4); PLATELET COUNT 231 /CUMM (130-400); RBC DISTRIBUTION WIDTH 13.2 % (11.5-14.5); RED BLOOD CELL CT 4.64 /CUMM (4.70-6.10); WHITE BLOOD CELL COUNT 9.5 /CUMM (4.8-10.8)
[2016-06-15 05:25] LABS: HEMATOCRIT 38.3 % (42-52)
[2016-06-15] MEDS ORDERED: PERCOCET 10-321 EACH PO (05:51)
[2016-06-15] MEDS ORDERED: IBUPROFEN800 M1 PO (05:51)
[2016-06-15] MEDS ORDERED: BACTRIM DS TAB1 EACH PO (05:51)
[2016-06-15 05:59] VITALS: BP 148/72
== END 2016-06-15 06:09 ==
LOC: ERH 04:15
PROVIDERS: Pediatrics
DX: G89.18 Other acute postprocedural pain (principal); K61.1 Rectal abscess
CPT/HCPCS: 96374; 96375; J1885